=== PATIENT | female | born 1990 | race Caucasian/White ===

== ENCOUNTER → 2019-12-29 | Outpatient (CLI) | payer BC ==
[~2019-12-29] MED LIST: AMOXICILLIN 50500 MG PO; COLACE 100100 MG/CAP PO; MOTRIN 200200 MG/TAB PO; MOTRIN 600600 MG/TAB PO; MULTIPLE VITAMI1 CAP PO; NO HOME MEDICATIONS; NORCO 325 MG-7.1 TAB PO; NUVARING VAG RING; PEPCID 20MG TAB20 MG PO; PERCOCET 325 MG1 TA2 PO; PHENERGAN 25 TA25 MG PO; PHENERGAN25 MG RC; PRENATAL 1 PLUS1 TA3 PO; PRENATAL1 TA1 PO
== END ==
LOC: ZCOL.LAB 17:57
DX: B34.9 Viral infection, unspecified (principal); Z20.828 Contact with and (suspected) exposure to other viral communicable diseases

== ENCOUNTER → 2020-05-12 | Outpatient (CLI) | payer OTHER | LOC: COL.RAD 12:40 | DX: N20.0 Calculus of kidney (principal); N83.201 Unspecified ovarian cyst, right side | CPT/HCPCS: Q9967 ==

== ENCOUNTER → 2022-05-31 | Outpatient (CLI) | payer OTHER | LOC: COL.VAS 08:00 | DX: R00.0 Tachycardia, unspecified (principal) ==